=== PATIENT | male | born 2000 | race Caucasian/White ===

== ENCOUNTER 2024-07-10 22:22 | Emergency (ER) | payer OTHER, SELFPAY ==
[2024-07-10 22:23] VITALS: BP 121/69; PULSE 91; RESP 15; TEMP 36.1; O2SAT 100; BMI 23.1
--- NOTE | 2024-07-10 22:42 | CT_ITS ---
EXAM: CT HEAD WITHOUT INTRAVENOUS CONTRAST CLINICAL INDICATION: syncope TECHNIQUE: Multiple axial images were obtained of the head without intravenous contrast. This CT exam was performed using one or more of the following dose reduction techniques: automated exposure control, adjustment of the mA and/or kV according to patient size, and/or use of iterative reconstruction technique. RADIATION DOSE: CTDIvol = 44.99 mGy, DLP = 880.47 mGy-cm COMPARISON: No relevant prior studies available. FINDINGS: BRAIN AND EXTRA-AXIAL SPACES: Unremarkable. No intra- or extra-axial hemorrhage. No evidence of acute infarct. No intracranial mass or mass effect. There is preservation of the rasheed/white matter interface. Posterior fossa structures are unremarkable. Ventricles are appropriate for age. No hydrocephalus. Basal cisterns are patent. BONES/JOINTS: Unremarkable. No discrete lytic or blastic abnormalities. SOFT TISSUES: Right frontal scalp/periorbital soft tissue swelling. SINUSES: Unremarkable as visualized. Clear. MASTOID AIR CELLS: Unremarkable. Clear. ORBITS: Visualized globes, extraocular muscles, optic nerves and retrobulbar fat appear unremarkable. CT/Brain/Head without Contrast IMPRESSION: 1. No acute intracranial abnormality. 2. Right frontal scalp/periorbital soft tissue swelling. Electronically Signed: Spencer Howell MD at 23:48 EST ,
[2024-07-10] MEDS: 0.9% Normal Saline (1000mL) 1,000 ML 999 ML IV ×2 (22:45→23:44)
--- NOTE | 2024-07-10 22:46 | EX.ED.DYSGE1 ---
HPI History of Present Illness Chief Complaint: Headache Informant: patient Narrative Narrative: Patient is a 24-year-old male who reports past medical history of migraines. He states he has been having them more frequently over the past year. He states last week he became ill and was diagnosed with RSV. He states because of that he was not eating or drinking well. He states that he woke this morning and got up to go to the bathroom and as he was walking to the bathroom began to feel his heart was racing and then he felt lightheaded and passed out. He states he believes he struck the sink with his head as he awoke on the bathroom floor and there was blood around him and he had a laceration around his right eyebrow. He states he was able to clean himself up and get the wound to stop bleeding and has spent the rest of the day at home. He states has been no further bouts of palpitations or syncope but he was talking with family and they advised him he should get this looked at and therefore he presents to the hospital for evaluation. He denies any history of bleeding disorder or blood thinner use. He denies any known history of cardiac disease or cardiac dysrhythmia. PFSH PFSH Allergy/AdvReac Type Severity Reaction Status Date / Time No Known Allergies Allergy Verified 07/10/24 22:23 Social History Smoking Status: Never smoker ROS ROS ED Constitutional Constitutional ED: Reports other Details: Positive fatigue ; Denies chills or fever(s) Eyes Eyes: Denies change in vision or diplopia ENT ENT ED: Denies sore throat Cardiovascular Cardiovascular: Reports palpitations, racing heartbeat and other Details: Positive syncope ; Denies chest pain Respiratory/Chest Respiratory/Chest: Denies cough or dyspnea Gastrointestinal Gastrointestinal: Denies abdominal pain, diarrhea, nausea or vomiting Genitourinary Genitourinary ED: Denies dysuria Musculoskeletal Musculoskeletal: Denies back pain or neck pain Integumentary Reports other Details: Positive right eyebrow laceration Neurologic Neurologic: Denies headache(s) or paresthesias Hematologic/Lymphatic Hematologic/Lymphatic: Denies easy bleeding or easy bruising EXAM Physical Exam Const Vital Signs: 07/10/24 22:23 Temperature 97 F L Temperature Source Temporal Pulse Rate 91 Respiratory Rate 15 Blood Pressure 121/69 H Blood Pressure Mean 86 Pulse Ox 100 Oxygen Delivery Method Room Air Positive well nourished and well developed General Appearance ED: well developed; Negative for pallor HEENT HEENT Narrative: Patient has a 1 x 2 cm hematoma along the lateral aspect of of the right eyebrow/forehead. There is a linear 2.0 cm laceration within the center of this. The wound is closed without active bleeding. No signs of depressed or basilar skull fracture Eyes PERRL and EOMs intact bilaterally Eyes Narrative: No hyphema General Eye ED: Negative for scleral icterus Neck supple Neck Narrative: No bony deformity or step-off of the cervical spine no midline tenderness to palpation Patient is able to move his neck in all directions without pain Chest Wall palpation of chest normal Resp normal respiratory effort and clear to auscultation bilaterally Cardio regular rate and regular rhythm Rate: other Other Details: Heart is regular rate and rhythm without murmurs rubs or gallop Carotid and radial pulses are equal and symmetric GI normal to inspection, nondistended, normoactive bowel sounds, non-tender, non-distended and no masses Auscultation: normoactive bowel sounds Palpation: soft Back/Spine Back/Spine Narrative: No bony deformity or step-off of the thoracic or lumbar spine no midline tenderness to palpation Extremity normal to inspection Neuro oriented x3, CN's II-XII intact bilaterally and no sensory deficits noted Neuro Narrative: GCS of 15 Cranial nerves II through XII are grossly intact without focal neurologic deficit No pronator drift no dysmetria no truncal ataxia No nystagmus noted NIH stroke scale score of 0 Sensorium / Orientation: alert Motor Exam: strength 5/5 throughout Psych mental status grossly normal Skin Skin Narrative: Hematoma with a laceration around the right lateral eyebrow/forehead as documented above General Skin Exam: Negative for jaundice or pallor MDM MDM MDM Narrative Medical decision making narrative: Patient arrived to the ER 10 to 11 hours after the syncopal event. He is hemodynamically stable but with him reporting palpitations and then a syncopal event there is concern for a cardiac dysrhythmia versus orthostatic syncope as he struck his head there is also concern for skull fracture versus traumatic subarachnoid or subdural hemorrhage versus acute blood loss anemia versus acute kidney injury versus electrolyte abnormality. The patient was placed on the desk monitor and he was in normal sinus rhythm without dysrhythmia change noted while in the ER. Head CT revealed no signs of trauma mass or bleed. Labs showed no signs of anemia acute kidney injury or severe electrolyte abnormality. Therefore at this time as his symptoms are most likely orthostatic in nature as she reported poor oral intake over the last week as he had RSV and occurred with changes in position and is now been rehydrated and can stand and ambulate without difficulty there is no need for further workup in the ER and he is otherwise safe for discharge. The patient's wound was closed upon arrival but I did feel it would benefit from Dermabond to prevent any potential reopening. Therefore the patient had the area cleaned with chlorhexidine and following this manual pressure was applied to the wound edges and then the wound was covered with Dermabond. Dermabond held the wound together well with good approximation of the wound edges. Patient tolerated the procedure well without complication. History & Record Review Discussion w/independent historian: Patient Lab Data Attestation: I reviewed the patient's lab results. Labs: Laboratory Results - last 24 hr 07/10/24 22:44 WBC 8.6 RBC 5.31 Hgb 16.4 Hct 47.5 MCV 89.5 MCH 30.9 MCHC 34.5 RDW Std Deviation 40.5 RDW Coeff of Judy 12.3 Plt Count 350 MPV 9.6 Immature Gran % (Auto) 0.500 Neut % (Auto) 67.8 Lymph % (Auto) 25.1 [place] % (Auto) 5.5 Eos % (Auto) 0.5 Baso % (Auto) 0.6 Absolute Neuts (auto) 5.8 Absolute Lymphs (auto) 2.15 Nucleated RBC % 0 Sodium 139 Potassium 3.8 Chloride 105 Carbon Dioxide 32.0 Anion Gap 2 L BUN 11 Creatinine 0.89 Estim Creat Clear Calc 133.95 Est GFR (MDRD) Af Amer 133 Est GFR (MDRD) Non-Af 110 BUN/Creatinine Ratio 12.4 Glucose 96 Calcium 9.0 Magnesium 2.1 TSH 0.505 Radiography Diagnostic Testing: Clinical Impression(s) from Imaging Studies Brain CT 07/10/24 22:42 IMPRESSION: 1. No acute intracranial abnormality. 2. Right frontal scalp/periorbital soft tissue swelling. Electronically Signed: Spencer Howell MD at 23:48 EST , Discharge Plan Triage Chief Complaint: Headache ED Provider: Vasiliy Vega Dx/Rx/DC Orders Clinical Impression: Orthostatic syncope, Closed head injury, Laceration of eyebrow and forehead Instructions: Causes of Syncope, ED Head Injury (Adult), ED Laceration, Skin Adhesive Primary Care Provider: Care Physician,No Primary Referrals: Ash Carbajal MD [Med Staff - Active Staff] - Care Physician,No Primary [Primary Care Provider] - Activity Restrictions/Additional Instructions: Your history and exam is most consistent with passing out from changes in position coupled with mild dehydration. Your CT scan showed no sign of mass or bleed and your labs were all within normal limit. You did not have any signs of abnormal cardiac rhythm while in the ER either. Keep yourself well-hydrated and follow-up with a family doctor to discuss further testing such as Holter monitor or referral to cardiology if symptoms persist and return to the ER should you have any further concerns Print Language: Macedonian Disposition Disposition: Home, Self Care
[2024-07-10 22:54] LABS: Absolute Lymphocyte Count 2.15 X10^3/uL (0.83-4.51); Absolute Neutrophil Count 5.8 X10^3/uL (2.0-7.7); Basophil# 0.05 X10^3/uL; Basophil% 0.6 % (0-1); Eosinophil# 0.04 X10^3/uL; Eosinophils% 0.5 % (0-5); Hematocrit 47.5 % (40-54); Hemoglobin 16.4 g/dL (13.0-16.5); Lymphocyte # 2.15 X10^3/ul (0.83-4.51); Lymphocyte % 25.1 % (19-41); Mean Corp Hgb Conc 34.5 g/dL (32-36); Mean Corpuscular Hgb 30.9 pg (27.0-32.0); Mean Corpuscular Volume 89.5 fL (80-94); Mean Platelet Vol. 9.6 fl (6.2-12.0); Monocyte# 0.47 X10^3/uL; Monocyte% 5.5 % (0-10); NRBC Flagged by Analyzer 0 % (0-5); Neutrophil # 5.81 X10^3/uL (2.7-7.7); Neutrophil % 67.8 % (47-70); Platelet Count 350 K/mm3 (150-450); RBC Distribution Width CV 12.3 % (11.6-14.6); RBC Distribution Width SD 40.5 fl (35.1-43.9); Red Blood Count 5.31 M/mm3 (4.6-6.2); White Blood Count 8.6 K/mm3 (4.4-11.0)
[2024-07-10 23:20] LABS: Anion Gap 2 (5-15); BUN 11 mg/dL (7-18); BUN/Creat Ratio 12.4 RATIO (10-20); Chloride 105 mmol/L (98-107); Creatinine, Serum 0.89 mg/dL (0.70-1.30); EST Glomerular Filtration Rate 110 mL/min (>60); Est Glom Filt Rate - Afr Amer 133 mL/min (>60); Estimated Creatinine Clearance 133.95 ml/min; Glucose 96 mg/dL (74-106); Magnesium 2.1 mg/dL (1.6-2.6); Potassium 3.8 mmol/L (3.5-5.1); Sodium Level 139 mmol/L (136-145); Thyroid Stim Hormone (TSH) 0.505 uIU/mL (0.358-3.740)
[2024-07-11 00:23] VITALS: BP 115/84; PULSE 73; RESP 23; O2SAT 99
[2024-07-11 00:30] VITALS: BP 115/84; PULSE 74; RESP 20; TEMP 36.9; O2SAT 99
== END 2024-07-11 00:30 | disposition home or self-care (01) ==
PROVIDERS: Emergency Provider Emergency Medicine; Visit Provider Emergency Medicine
DX: R55 Syncope and collapse (principal); S01.119A Laceration without foreign body of unspecified eyelid and periocular area, initial encounter; W18.09XA Striking against other object with subsequent fall, initial encounter; Y92.012 Bathroom of single-family (private) house as the place of occurrence of the external cause
CPT/HCPCS: 12011; 70450; 80048; 83735; 84443; 85025; 96360; 96361; 99283; A4216